=== PATIENT | male | born 1930 | race Caucasian/White ===

== ENCOUNTER 2019-02-01 11:21 | Inpatient (IN) | payer OTHER ==
[2019-02-01] MEDS ORDERED: NS 500 ML IV ONE (12:04)
--- NOTE | 2019-02-01 12:59 | EDPHY ---
H & P Time Seen by Provider: 02/01/19 11:48 HPI/ROS: CHIEF COMPLAINT: Fell last night, back pain HISTORY OF PRESENT ILLNESS: Per and patient, patient fell last night, he states he "lost his balance". She found him on the floor this morning and he said he had been there all night. This was about 730 this morning. She needed to call a neighbor to help him get up but he was able to walk downstairs and ate breakfast. He did have to have his clothes changes he had urine on him after lying on the floor all night. called primary care and was told to come into the emergency department. Patient currently states that he has no pain in any particular area. He has been coughing for "few weeks". When asked in more detail he does also describe a little shortness of breath associated with the coughing. He denies headache, neck pain, chest pain, nausea, vomiting. He denies any extremity pain or hip pain. Per he has been getting weaker lately. He does use a walker. He does not use home O2. He has cck-pczldzl-qbqxxsazh diabetes. REVIEW OF SYSTEMS: Constitutional: No fever, no chills. Eyes: No discharge. ENT: No sore throat. Cardiovascular: No chest pain, no palpitations. Respiratory: Cough and shortness of breath present time several weeks Gastrointestinal: No abdominal pain, no vomiting. Genitourinary: No dysuria. Musculoskeletal: Chronic back pain. Denies neck pain. Skin: No rashes. Neurological: No headache. General Appearance: Alert, no distress. Hypoxic. Eyes: Pupils equal and round no pallor or injection. ENT, Mouth: Mucous membranes moist. Respiratory: There are no retractions, crackles in bases bilaterally. Diminished. Cardiovascular: Regular rate and rhythm. Gastrointestinal: Abdomen is soft and nontender, no masses, bowel sounds normal. Normal femoral pulses. Neurological: Awake, cooperative, no obvious focal deficits. Cranial nerves intact. Skin: Warm and dry, no rashes. Musculoskeletal: Neck is supple nontender. Extremities are symmetrical, full range of motion, no edema. Some diffuse back tenderness no step-off or crepitus. Psychiatric: Patient is oriented X 3, there is no agitation. Medical/surgical history: Noninsulin dependent diabetes, high cholesterol, hypothyroid, chronic back pain. Social history: Lives with , previous smoker 30 years ago. No ETOH or drugs. Uses walker. Smoking Status: Former smoker Constitutional: Initial Vital Signs Temperature (C) 36.1 C 02/01/19 11:29 Heart Rate 68 02/01/19 11:29 Respiratory Rate 20 02/01/19 11:29 Blood Pressure 130/66 H 02/01/19 11:29 O2 Sat (%) 85 L 02/01/19 11:29 O2 Delivery Mode Room Air Allergies/Adverse Reactions: No Known Allergies Allergy (Verified 02/01/19 11:29) Home Medications: Medication Instructions Recorded Levothyroxine 07/30/13 Metformin HCl 07/30/13 Donepezil HCl 02/01/19 Medical Decision Making - Diagnostics EKG Interpretation: EKG shows sinus rhythm with a prolonged NC interval. Normal axis. Q-waves present in anterior leads consider possible old infarct. Subtle ST T-wave changes not meeting criteria for ST-elevation CT. Impression abnormal, nonspecific EKG. Repeat EKG shows no changes. Imaging Results: Imaging Impressions Chest X-Ray 02/01/19 12:05 Impression: New diffuse interstitial lung disease of unknown chronicity. Consider noncontrast high-resolution chest CT for further characterization. 2. Interval moderate T8 compression, superimposed on other compressions, suggests underlying low bone strength. This patient might benefit from a DEXA scan. Chest/Thorax CTA 02/01/19 13:18 Impression: 1. No pulmonary embolism. 2. Emphysema. Findings and recommendations discussed with Josephine Mckay MD at 2:00 PM hour , 02/01/2019. Final report concurs with initial preliminary interpretation. Thoracic Spine CT 02/01/19 13:19 Impression: Compression deformities to T9 and T10, worse compared to prior radiograph in 2016. Probably stable T5 compression fracture. MRI for further assessment of exact levels of acute bone marrow edema is recommended if intervention is contemplated. Given the above findings, patient would be an excellent candidate for kyphoplasty for relief of pain. Considering patient's pulmonary risk factors, this can be performed with conscious sedation. Findings and recommendations discussed with Josephine Mckay MD, at 2:00 PM, . Final report concurs with initial preliminary interpretation. ED Course/Re-evaluation: Re-evaluation shows patient without any complaints of pain. States the cough has been ongoing for several weeks and does state there has been associated shortness of breath with that. No recent changes however. 1:[address] Jamie claudio, hospitalist, accepted for transfer. Differential Diagnosis: Differential diagnosis includes but is not limited to non ST elevation CT, acute coronary syndrome, pulmonary embolism, acute thoracic fracture, failure to thrive. Patient with multiple abnormalities found on workup today most notable very elevated D-dimer and troponin. Discussed with hospitalist and will plan for admission at [facility] PCU. Patient otherwise comfortable, hemodynamically stable, suitable for ambulance transport. Maintain O2 sats on nasal cannula. Critical Care Time: I spent a total of 35 minutes of critical care time in obtaining history, performing a physical exam, bedside monitoring of interventions, collecting and interpreting tests and discussion with consultants but not including time spent performing procedures. - Data Points Laboratory Results: 02/01/19 02/01/19 02/01/19 12:49 12:48 12:40 POC Sodium 138 mEq/L mEq/L (135-145) POC Potassium 4.6 mEq/L mEq/L (3.3-5.0) POC Chloride 100.0 mEq/L mEq/L (97-110) POC Total CO2 28 mEq/L mEq/L (22-31) POC BUN 27 mg/dL H mg/dL (7-23) POC Creatinine 1.0 mg/dL mg/dL (0.7-1.3) POC Glucose 127 mg/dL H mg/dL (70-100) POC Calcium 10.4 mg/dL mg/dL (8.5-10.4) POC Total Bilirubin 0.7 mg/dL mg/dL (0.1-1.4) POC AST 46 IU/L IU/L (17-59) POC ALT 22 IU/L IU/L (21-72) POC Alk Phosphatase 69 IU/L IU/L (38-126) Creatine Kinase 509 IU/L H IU/L (0-224) CK-MB (CK-2) Fraction 15.60 ng/mL H ng/mL (0.00-4.55) CK-MB (CK-2) % 3.1 % % (0.0-4.0) Creatine Kinase Interp NEGATIVE (NEGATIVE) POC Troponin I 1.74 ng/mL H ng/mL (0.00-0.08) NT-Pro-B Natriuret Pep POC Total Protein 6.5 g/dL g/dL (6.3-8.2) POC Albumin 3.0 g/dL L g/dL (3.5-5.0) 02/01/19 12:40 POC Sodium POC Potassium POC Chloride POC Total CO2 POC BUN POC Creatinine POC Glucose POC Calcium POC Total Bilirubin POC AST POC ALT POC Alk Phosphatase Creatine Kinase CK-MB (CK-2) Fraction CK-MB (CK-2) % Creatine Kinase Interp POC Troponin I NT-Pro-B Natriuret Pep 6300 pg/mL H pg/mL (0-450) POC Total Protein POC Albumin Medications Given: Discontinued Medications Sodium Chloride (Ns) 500 mls @ 1,000 mls/hr IV EDNOW ONE PRN Reason: Protocol Stop: 02/01/19 12:33 Last Admin: 02/01/19 12:45 Dose: 500 mls Point of Care Test Results: CBC CBC Collection Date 02/01/19 CBC Collection Time 12:40 WBC 9.26 RBC 4.74 HGB 14.8 HCT 44.8 PLT 371 Neut # 7.12 Neut 76.9 LYMPH # 0.72 LYMPH 7.8 MCV 94.5 Chemistry 02/01/19 02/01/19 12:49 12:48 POC Sodium 138 mEq/L mEq/L (135-145) POC Potassium 4.6 mEq/L mEq/L (3.3-5.0) POC Chloride 100.0 mEq/L mEq/L (97-110) POC Total CO2 28 mEq/L mEq/L (22-31) POC BUN 27 mg/dL H mg/dL (7-23) POC Creatinine 1.0 mg/dL mg/dL (0.7-1.3) POC Glucose 127 mg/dL H mg/dL (70-100) POC Calcium 10.4 mg/dL mg/dL (8.5-10.4) POC Total Bilirubin 0.7 mg/dL mg/dL (0.1-1.4) POC AST 46 IU/L IU/L (17-59) POC ALT 22 IU/L IU/L (21-72) POC Alk Phosphatase 69 IU/L IU/L (38-126) POC Troponin I 1.74 ng/mL H ng/mL (0.00-0.08) POC Total Protein 6.5 g/dL g/dL (6.3-8.2) POC Albumin 3.0 g/dL L g/dL (3.5-5.0) D-Dimer D-Dimer Collection Date 02/01/19 D-Dimer Collection Time 12:40 D-Dimer (ng/ml) 979 Urine Dip Collection Date 02/01/19 Collection Time 13:00 Specific Cody (1.002-1.030) 1.025 PH (5.0-7.5) 5.0 Leukocytes (Negative) Negative Nitrites (Negative) Negative Protein (Negative) 1+ Glucose (Negative) Negative Ketones (Negative) Negative Urobilnogen (0.2-1.0 EU) 0.2 Bilirubin (Negative) Negative Blood (Negative) 2+ Departure - Departure
[2019-02-01] MEDS ORDERED: IOPAMIDOL (ISOVUE 370) 100 ML BTL IV ONE (13:26)
[2019-02-01] MEDS ORDERED: ONDANSETRON DISINTEGRATING 4 MG TAB PO PRN (14:20)
[2019-02-01] MEDS ORDERED: ACETAMINOPHEN 325 MG TAB PO PRN (14:20)
[2019-02-01] MEDS ORDERED: ONDANSETRON 4 MG/2 ML VIAL IVP PRN (14:20)
[2019-02-01] MEDS ORDERED: D50W 25 GM/50 ML SYR IVP PRN (14:22)
[2019-02-01 14:38] LABS: CREATINE KINASE 509 IU/L (0-224)
[2019-02-01] MEDS ORDERED: ASPIRIN 81 MG CHEWABLE TAB ONE (15:32)
[2019-02-01] MEDS ORDERED: ASPIRIN 81 MG CHEWABLE TAB PO ONE (15:38)
[2019-02-01] MEDS ORDERED: HEPARIN 10,000 UNIT/10 ML MDV (1,000 UNIT/ML) IVP ONE (17:22)
[2019-02-01] MEDS ORDERED: HEPARIN/DEXTROSE 500 ML IV SCH (17:30)
--- NOTE | 2019-02-01 18:12 | GHP ---
[f rep st] HISTORY AND PHYSICAL DATE OF ADMISSION: 02/01/2019 CHIEF COMPLAINT: NSTEMI, shortness of breath. HISTORY OF PRESENT ILLNESS: An 88-year-old male with history of moderate aortic stenosis, hyperlipidemia, and dementia, who went to [facility] after a fall last night. Per patient, he "lost his balance." found him on the floor, and said he had been there all night. Neighbor had to help to get him up. He denies chest pain. He has had a nonproductive cough for the past 3 weeks. He does endorse some shortness of breath, most with sitting. Denies PND or pillow orthopnea. No leg or abdominal swelling. No fevers, chills, or sweats. No palpitations or loss of consciousness. He does use a walker. Labs revealed troponin 1.74. CTA was negative for PE, demonstrated emphysema. He was transferred to [facility] for further care. Upon my interview, the patient states he would not want aggressive medical management including interventions like a cath. He is okay with medical management with heparin. REVIEW OF SYSTEMS: I completed a 10-point review of systems, negative except as noted in HPI. PAST MEDICAL HISTORY: Aortic stenosis, diabetes, hyperlipidemia, hypothyroidism , dementia, diabetic neuropathy, and chronic back pain. PAST SURGICAL HISTORY: Appendectomy. SOCIAL HISTORY: Lives in [place] with his , 67 years. Smoked 2 packs a day for 20 years. No longer a smoker. No alcohol or illicits. FAMILY HISTORY: Noncontributory. HOME MEDICATIONS: Aricept, metformin, levothyroxine. ALLERGIES: None. PHYSICAL EXAMINATION: VITAL SIGNS: Temperature 36.4, blood pressure 116/65, heart rate in the 50s, respirations 14, 88% on 4 L. GENERAL: He is lying in bed in no acute distress. HEENT: PERRLA. Moist mucous membranes. CV: Regular rate and rhythm. +3/6 murmur, right upper sternal border, radiation to carotid. No lower extremity edema. LUNGS: Clear. No crackles or wheezing. ABDOMEN: Soft, nontender. : No Harris. Musculoskeletal: He is moving all four extremities. NEURO: 2 through 12 intact. PSYCH: He is answering questions appropriately. MUSCULOSKELETAL: No tenderness over spine. LABORATORY FINDINGS: 1. WBC 6, hemoglobin 16, hematocrit 48, platelets 229. INR 1.1, PTT is 14. Lactate is 2.4. Sodium 138, potassium 4.8, chloride 100, carbon dioxide 28, creatinine is 1. Glucose is 117, calcium 10.4. Bilirubin 0.7. Troponin is 1.74. Albumin is 3. 2. CTA: No pulmonary embolism. Emphysema. 3. Chest x-ray: Personally reviewed by me, interstitial disease. Moderate T8 compression. 4. CT thoracic spine: Compression deformities, T9-T10, worse compared to prior imaging. Probably stable T5 compression fracture. 5. EKG: Personally reviewed by me. Mild inferior ST-elevation similar to prior. Old anterior infarct. ASSESSMENT AND PLAN: 1. Cmz-GB-puzztnauz myocardial infarction : Denies chest pain. CT negative for PE. Concern for progressive aortic stenosis. Echocardiogram in the morning. Dr. Meyer was consulted. They will see tomorrow. The patient does not want aggressive evaluation, including catheterization. He is agreeable to medical management. Start heparin drip tonight. Aspirin. No beta hernandez with bradycardia. 2. Dementia, on Aricept. 3. Hypothyroidism, on levothyroxine. 4. Respiratory insufficiency: 85% RA Does endorse some shortness of breath, likely due to valvular heart disease. Respiratory panel is pending. 5. T5 compression fx: he c/o of lumbar pain, no TTP on imaging. 5. Diet: Regular. 7. Deep vein thrombosis prophylaxis. He is on heparin drip. 8. Goals: DNR, medical management DISPOSITION: Inpatient admission for IV heparin. Cardiac evaluation. /[id number]/MODL MTDD
--- NOTE | 2019-02-01 18:12 | CPEKG ---
Test Reason : OPEN Blood Pressure : / mmHG Vent. Rate : 059 BPM Atrial Rate : 059 BPM P-R Int : 282 ms QRS Dur : 094 ms QT Int : 431 ms P-R-T Axes : 002 022 081 degrees QTc Int : 427 ms Sinus rhythm Prolonged OK interval Anterior infarct, old Confirmed by Josephine Mckay (30) on 02/01/2019 6:12:09 PM Referred By: Josephine Mckay Confirmed By:Josephine Mckay
--- NOTE | 2019-02-01 18:12 | CPEKG ---
Test Reason : OPEN Blood Pressure : / mmHG Vent. Rate : 055 BPM Atrial Rate : 055 BPM P-R Int : 289 ms QRS Dur : 096 ms QT Int : 448 ms P-R-T Axes : -01 029 085 degrees QTc Int : 429 ms Sinus rhythm Prolonged FL interval Anterior infarct, old Confirmed by Josephine Mckay (30) on 02/01/2019 6:11:53 PM Referred By: Josephine Mckay Confirmed By:Josephine Mckay
[2019-02-01] MEDS: INSULIN LISPRO 100 UNIT/ML SC SCH (18:21)
[2019-02-01 18:44] LABS: PLATELET COUNT 369 10^3/uL (150-400)
[2019-02-01 18:54] LABS: INR 1.08 (0.83-1.16); PROTIME(PATIENT) 13.6 SEC (12.0-15.0)
[2019-02-02] MEDS: HEPARIN 10,000 UNIT/10 ML MDV (1,000 UNIT/ML) IVP PRN ×3 (06:40→16:50)
[2019-02-02] MEDS ORDERED: ASPIRIN 81 MG CHEWABLE TAB PO ONE (09:00)
[2019-02-02] MEDS ORDERED: ENOXAPARIN 40 MG/0.4 ML SYR SC SCH (09:00)
--- NOTE | 2019-02-02 09:25 | PDMN ---
Medical Necessity Medical necessity: MCG M230 [place], 2 days: 88 yo w/ acute NSTEMI w/ elevated troponin, concern for progressive aoritic stenosis. Pt requiring O2 to keep sats >90%. Cardio consult, heparin gtt started. Admit IP status for cardio eval, monitoring and tx.
[2019-02-02] MEDS: ATORVASTATIN CALCIUM 20 MG TAB PO SCH (10:14)
[2019-02-02] MEDS: INSULIN LISPRO 100 UNIT/ML SC SCH ×3 (10:15→18:32)
--- NOTE | 2019-02-02 11:38 | GCON ---
[f rep st] CONSULTATION CARDIOLOGY CONSULTATION DATE OF CONSULTATION: 02/02/2019 REFERRING PHYSICIAN: Carolann Olivarez MD CHIEF COMPLAINT: Non-ST elevation myocardial infarction and valvular heart disease. HISTORY OF PRESENT ILLNESS: We were asked by Dr. Olivarez to visit with the patient. The patient is a n 88-year-old male with a history of moderate aortic stenosis based on 2014 echo, diabetes complicate d by neuropathy, dementia, dyslipidemia. Yesterday, he was brought to [facility] by his after [facility] He had [facility] during the night. Per patient report, he tripped and fell and did not have loss o f consciousness or dizziness. He was unable to get up, but with her help and the help of neighbor sonali spencer get up and was brought to Urgent Care. In the department, his troponin was found to be 1.7. He was complaining of mild dyspnea, but no ches t pain. He was found to be significantly hypoxic. He was, therefore, admitted to [facility] for further evaluation and management. Upon my interview this morning, he reports no chest pain, no dyspnea, no palpitations. No history of recent syncope. No lower extremity edema. His only complaint is lower back pain, which is chronic, and per his report, not worsening. I have reviewed prior records. He was last seen by Dr. Gonzalez at [facility] in December 2013. This was to discuss an echo that had been done just prior to that visit showing a low normal ejection frac tion with apical hypokinesis and moderate aortic stenosis. The patient elected for continued medical management at that time. ALLERGIES: No known drug allergies. CODE STATUS: Do not resuscitate. PAST MEDICAL HISTORY: 1. Aortic stenosis, moderate based on 2014 echo. 2. Diabetes complicated by neuropathy. 3. Chronic low back pain. 4. Hypothyroidism. 5. Dementia. 6. Dyslipidemia. 7. Emphysema seen on recent chest CT. OUTPATIENT MEDICATIONS: Vitamin D3, Aricept, Synthroid, metformin, multivitamin, fish oil. SOCIAL HISTORY: The patient is and lives with his . He has a former tobacco history, bu t quit several years ago. He denies alcohol use. He used to be a contractor for sewage piping. FAMILY HISTORY: History is not applicable to the current case. PHYSICAL EXAM: VITAL SIGNS: Blood pressure 111/54, heart rate 54, oxygen saturation is 88% on 5 L n barbie cannula. He is afebrile. GENERAL: Somewhat frail, elderly gentleman in no acute distress. HE ENT: Dentition poor. Mucous membranes are moist. Sclerae are nonicteric. Normocephalic atraumatic . CARDIOVASCULAR: JVP less than 10. Carotids equal and 2+ bilaterally without bruit. Regular rate and rhythm with a 2/6 mid peaking systolic ejection murmur at the base. No rub or gallop. LUNGS: Fine bibasilar rales without wheezes or rhonchi. ABDOMEN: Slightly distended and nontender. No obv ious masses. EXTREMITIES: No lower extremity edema. Extremities are warm. NEUROLOGIC: He is aler t and oriented x3. No gross focal neurologic deficits. Appropriate mood and affect. He does seem t o be able to answer correctly all my questions. LABORATORY/IMAGING: CBC is essentially normal, except for a slightly elevated eosinophil count with an overall normal white count. INR 1. Sodium 138, potassium 4.6, chloride 100, BUN 27, creatinine 1 .0, glucose 127. CK 509 with a negative MB fraction. Qryix-ih-xire troponin yesterday 1.74. Repeat at 2120, 1.51, and this morning at 0130, 1.27. Echocardiogram is pending. EKG reviewed by me x2 and compared with 2016, shows sinus rhythm with delayed R-wave progression, inf erior Q-waves, minimal inferior ST elevation that was not present on 2016 EKG. Chest x-ray reviewed by me shows shows an interstitial abnormality. Chest CT: No pulmonary embolism. Emphysema. Thoracic spine CT: Compression deformities T9 and T10. T5 compression fracture probably stable. Th e T9 and T10 are worse compared to 2016. ASSESSMENT AND PLAN: 88-year-old male with known aortic stenosis last evaluated in 2014, diabetes, d yslipidemia, dementia that seems mild upon my observation. He is admitted status post fall at home, found to have slightly elevated troponin, and significant hypoxia with evidence of underlying emphyse matous lung disease and also EKG changes. 1. Non-ST elevation myocardial infarction: He does have minimal ST elevation, but also inferior Q-w aves. His troponin is decreasing. He denies angina. No indication for urgent catheterization at is time. Initially, he told Dr. Olivarez last night that he would not want a catheterization, but he t ells me that he would want procedures on his heart if we thought that was necessary. He is currently on a heparin drip and aspirin. I will add low-dose statin. Check lipid profile. No beta hernandez g iven his relative bradycardia and normotension to slightly low blood pressures. Will await echocardi ogram prior to deciding about coronary angiography. 2. Aortic stenosis: Likely this has progressed over the past 5 years. His BNP is elevated, but his chest imaging does not suggest significant pulmonary edema, but rather underlying emphysematous dise ase. We will hold off on Lasix for now. Re-evaluate with echo. If his aortic stenosis is severe, judy quiñones may be a candidate for transcatheter aortic valve replacement. 3. Fall at home: By history, this seems mechanical. He does have compression fractures of unclear age of unclear chronicity. Does have back pain. We will defer to Internal Medicine and Radiology ab out whether he needs kyphoplasty. 4. Diabetes: Per Hospital Medicine. 5. Hypothyroidism. Last TSH was normal in December of this year. Continue Synthroid. 6. Dementia: He is on Aricept. He appears appropriate and oriented on my evaluation. 7. Thank you for allowing us to participate in the patient's care. We will follow with you and make a f urther plan based on echocardiogram. /[id number]/MODL
--- NOTE | 2019-02-02 13:52 | ECHO ---
[email or web address] [address] [address] Main: [phone] Echocardiography Examination Transthoracic Name: DEVONTE BENITES MR#: [id number] Study Date: 02/02/2019 Study Time: 10:43 AM Date of : 1930 Age: 88 year(s) Height: 172.7 cm (68 in.) Weight: 67.59 kg (149 lb.) BSA: 1.8 m2 Gender: Male Examination: Echo Contrast: Image Quality: Rhythm: Heart Rate: BP: / Indication: NSTEMI Procedure Staff Referring Physician: Storage Brine Worker: Hermes Castillo RDCS Reading Physician: Charlene Meyer MD Requesting Provider: Ordering Physician: Carolann Olivarez Indication: NSTEMI Measurements Chambers AV/MV Label Value Normal Value Label Value Normal Value LVOT Vmax 1.1 m/s (0.7m/s - 1.1m/s) AR PHT 0.77 s LVOTd 2.1 cm (1.9cm - 2.1cm) AR PHT 770 ms LVOT VTI 26.2 cm (18cm - 22cm) AR Vmax 3.09 m/s LVDd, 2D 4.3 cm (4.2cm - 5.9cm) AV PGmax 44 mmHg LVDs, 2D 3 cm (2.1cm - 4cm) AV PGmean 27 mmHg IVSd, 2D 0.9 cm (0.6cm - 1.1cm) AV Vmax 3.31 m/s LVPWd, 2D 1 cm (0.6cm - 1cm) IZABEL (Vmax) 1.2 cm2 LVEF, 2D 57 % (54% - 74%) IZABEL (VTI) 1.3 cm2 LVOT PGmean 3 mmHg MV E Vmax 0.48 m/s LVOT Vmean 0.83 m/s MV A Vmax 0.88 m/s LADs, 2D 3.4 cm (3cm - 4cm) MV E/A 0.55 Additional Vessels MV E/E' lateral 21.4 Label Value Normal Value MV E/E' septal 12.9 (0.45 - 1.25) AoAsc 2.3 cm MV E' septal 0.04 m/s AoRoot, MM 3.3 cm (2.2cm - 3.7cm) MV E' lateral 0.02 m/s MV E/E' mean 16 MV E' mean 0.03 m/s TV/PV Label Value Normal Value Patient: DEVONTE BENITES Study Date: 02/02/2019 Page 1 of 2 10:43 AM PV PGmax 4 mmHg PV Vmax, Caliper 1.05 m/s (0.6m/s - 0.9m/s) Findings 1. Left ventricular systolic function is low normal with an ejection fraction of 50-55%. There is apical hypokinesis that is also somewhat aneurysmal in appearance.2. The right ventricle is normal in size and systolic function.3. moderate aortic stenosis and mild aortic regurgitation.4. Trivial tricuspid regurgitation. Unable to assess PA systolic pressure5. Compared with previous echo dated 12/01/2013 wall motion abnormality and EF for similar. Transaortic valve gradients have increased but aortic stenosis is still in the moderate range.. Left Ventricle: There is Apical hypokinesis. The apex does appear somewhat aneurysmal. There is accelerated flow in the mid left venticle with a gradient of 7 mmHg. There is a dagger shaped mid LV waveform. Elevated left ventricular filling pressure. Left ventricle is normal in size. The EF is visually estimated to be 50 %. Left ventricle wall thickness is normal. Grade II Diastolic Dysfunction. Right Ventricle: Normal size right ventricle. Right ventricular systolic function is normal. Left Atrium: The left atrium is normal in size. Right Atrium: The right atrium is normal in size. Mitral Valve: Mitral valve appears structurally normal. No significant mitral regurgitation. There is mild mitral calcification. Aortic Valve: The AV Vmax is 3.3 cm/s with a Mean PG of 27mmHg and a Max PG of 44mmHg.. Mild aortic regurgitation is present. There is moderate aortic stenosis. Aortic leaflets exhibit moderate calcification. Tricuspid Valve: Tricuspid valve leaflets are structurally normal. Trivial tricuspid regurgitation. Pulmonic Valve: Pulmonic leaflets are structurally normal. No pulmonic valve regurgitation is evident. Aorta: The aorta is normal. The aortic root size in M-mode measures 3.3 cm. The ascending aorta measures 2.3 cm. Aorta Measurements AoRoot, MM is 3.3 cm. Pericardium: No pericardial effusion. Exam Details Procedure Ordered: Echo (No Signature Object) Patient: DEVONTE BENITES Study Date: 02/02/2019 Page 2 of 2 10:43 AM [id number]
--- NOTE | 2019-02-02 15:16 | HOSPPROG ---
Hospitalist Progress Note Assessment/Plan: 88 yo M w NSTEMI NSTEMI: trop peaked at 1.[address] elevations w no reciprocal changes echo w apical HK which is old continue heparin overnight lexiscan in AM1 asa/statin repeat trop in AM hold BB given hr 50's : gradient increased but remains moderate pulm: copd on CT fine crackles at bases add IS not wheezing compression fx: not new, but perhaps worse will revisit after lexiscan fall: mechanicall dispo: inpt code: dnr Subjective: no CP. case d/w dr tom Objective: Vital Signs Temp Pulse Resp BP Pulse Ox 36.7 C 60 22 H 98/49 L 1 L 02/02/19 12:00 02/02/19 12:00 02/02/19 12:00 02/02/19 12:00 02/02/19 12:00 Microbiology 02/01/19 16:30 Respiratory Panel (PCR) - Final Nasal, Sinus - Swab No Organism Detected By Pcr Laboratory Results 02/01/19 18:15 02/01/19 02/02/19 02/03/19 05:59 05:59 05:59 Intake Total 900 240 Balance 900 240 PT 13.6 SEC (12.0-15.0) 02/01/19 18:15 INR 1.08 (0.83-1.16) 02/01/19 18:15 - Physical Exam Constitutional: no apparent distress, appears nourished Eyes: PERRL, anicteric sclera Ears, Nose, Mouth, Throat: moist mucous membranes, hearing normal Cardiovascular: regular rate and rhythym, systolic murmur, No edema Respiratory: no respiratory distress, other (bibasilar crackles) Gastrointestinal: normoactive bowel sounds, soft, non-tender abdomen Genitourinary: No ge in urethra Skin: warm, normal color Musculoskeletal: full muscle strength Neurologic: AAOx3 Psychiatric: interacting appropriately
--- NOTE | 2019-02-02 15:38 | ASMTCMCOM ---
CM Note CM Note Notes: Pts case discussed w/ JORJE Burton. Pt is a 88 y/o man admitted for NSTEMI and shortness of breath. CM met w/ pt and introduced self. Pt reports that he was driving prior to coming into the hospital. CM spoke to pts and she reports that he needed help around the house. She reports that pt was getting [facility] but is unhappy with them. Therapies have been ordered and awaiting recommendations. Pts will be here tomorrow at 10:30AM for rounds. CM to follow. Plan: TBD Date Signed: 02/02/2019 03:37 PM Electronically Signed By:ARNULFO Rodriguez
[2019-02-03] MEDS: LEVOTHYROXINE 88 MCG TAB PO SCH (06:20)
[2019-02-03] MEDS: INSULIN LISPRO 100 UNIT/ML SC SCH ×3 (08:13→18:34)
[2019-02-03] MEDS ORDERED: Herbals/Supplements -Info Only PO SCH (09:00)
[2019-02-03] MEDS: ASPIRIN 81 MG CHEWABLE TAB PO SCH (10:28)
[2019-02-03] MEDS: MULTIVITAMINS 1 EACH TAB PO SCH (10:28)
[2019-02-03] MEDS: OMEGA-3 FATTY ACIDS 1,000 MG CAP PO SCH (10:28)
[2019-02-03] MEDS: CHOLECALCIFEROL VIT D3 1,000 UNITS TAB PO SCH (10:28)
[2019-02-03] MEDS: ATORVASTATIN CALCIUM 20 MG TAB PO SCH (10:28)
[2019-02-03] MEDS: DONEPEZIL HCL 5 MG TAB PO SCH (10:30)
--- NOTE | 2019-02-03 12:43 | PDCARPN ---
Cardiology Progress Note Assessment/Plan: Assessment/plan: 88-year-old male with moderate aortic stenosis, COPD, dementia , diabetes. He was admitted on February 01 status post fall at home. Troponin minimally elevated at 1.7. This has improved. He has not had angina. He completed 48 hr of heparin. 1. Non ST-elevation MS: Based on his apical wall motion abnormality on echo which was present in 2013, he likely has coronary disease with a past history of MS and now an additional non ST-elevation MS. I discussed options with the patient including medical management, nuclear stress test or catheterization. Initially the patient had said he would want aggressive testing, however today he declined Lexiscan nuclear stress test. Given lack of angina or heart failure I think this is acceptable, and assess wishes. Continue aspirin statin. No indication for beta-hernandez given his relative bradycardia. 2. Moderate aortic stenosis: Slightly worse compared to 2014 but still in the moderate range. Needs outpatient serial follow-up. 3. COPD and hypoxia: He has emphysematous changes on chest CT. Previously was not on oxygen. No other etiology for hypoxia. 4. Fall at home: No acute injury. 5. Diabetes: Per Internal Medicine 6. Dementia: He is on Aricept. Okay to discharge from a cardiac standpoint. We will sign off. He can follow up with me in clinic. 02/03/19 12:41 Subjective: Denies chest pain or dyspnea. Reviewed/Discussed With: hospitalist (Dr. Ponce) Objective: Vital Signs (8 Hrs) Temp Pulse Resp BP Pulse Ox 02/03/19 11:53 36.8 C 54 L 18 115/55 L 94 02/03/19 08:00 36.7 C 56 L 18 105/50 L 92 Intake/Output (24 Hrs) 02/02/19 02/03/19 02/04/19 05:59 05:59 05:59 Intake Total 900 1137 Balance 900 1137 Intake: Oral (ml) 400 540 IV Infused (ml) 500 597 Heparin/Dextrose 500 ml @ 597 Per Protocol IV CONT MAYI Rx#:[id number] Other: Weight 67.585 kg Output Comment Toilet BM per patient Number of Voids 2 Incontinence 1 Toilet 2 4 1 Number of Stools Toilet 1 No acute distress. Sitting up in bed eating. JVP less than 10. Regular rate and rhythm with 2/6 mid-peaking systolic ejection murmur at the base. Decreased breath sounds throughout all lung good no wheezes rhonchi rales No lower extremity edema Result Diagrams: 02/03/19 06:20 Cardiac Labs: Cardiac Lab Results (72 Hrs) 02/02/19 02/01/19 01:30 21:20 Troponin I 1.270 H 1.510 H ICD10 Worksheet Patient Problems: Problems Problem Status Onset NSTEMI (non-ST elevated myocardial infarction) Acute - ICD10 Problem Qualifiers (1) NSTEMI (non-ST elevated myocardial infarction)
[2019-02-03] MEDS ORDERED: FUROSEMIDE 40 MG/4 ML VIAL IVP ONE (13:29)
--- NOTE | 2019-02-03 13:38 | HOSPPROG ---
Hospitalist Progress Note Assessment/Plan: 88 yo M w NSTEMI NSTEMI: trop peaked at 1.[address] elevations w no reciprocal changes echo w apical HK which is old dc heparin today declines lexiscan, which is OK asa/statin hold BB given hr 50's : gradient increased but remains moderate outpt follow up AHRF: suspect multifactorial copd, plus possible pulm edema 1. start scheduled duonebs 2. IS 3. lasix x 1 4. wean 02 as tolerated 5. was 85% on RA on presentation suspect will need home 02 pulm: copd on CT fine crackles at bases add IS not wheezing compression fx: not new, but perhaps worse fall: mechanical dispo: inpt code: dnr Subjective: case d/w dr tom. declines lexiscan. persistent 02 requirement Objective: Vital Signs Temp Pulse Resp BP Pulse Ox 36.8 C 54 L 18 115/55 L 94 02/03/19 11:53 02/03/19 11:53 02/03/19 11:53 02/03/19 11:53 02/03/19 11:53 Laboratory Results 02/03/19 06:20 02/02/19 02/03/19 02/04/19 05:59 05:59 05:59 Intake Total 900 1137 Balance 900 1137 PT 13.6 SEC (12.0-15.0) 02/01/19 18:15 INR 1.08 (0.83-1.16) 02/01/19 18:15 - Physical Exam Constitutional: no apparent distress, appears nourished Eyes: PERRL, anicteric sclera Ears, Nose, Mouth, Throat: moist mucous membranes, hearing normal Cardiovascular: regular rate and rhythym, no murmur, rub, or gallop Respiratory: other (bibasilar crackles w prolonged expiratory phase) Gastrointestinal: normoactive bowel sounds, soft, non-tender abdomen Genitourinary: no bladder fullness, No ge in urethra Skin: warm, normal color Musculoskeletal: full muscle strength, no muscle tenderness Neurologic: AAOx3, sensation intact bilaterally Psychiatric: interacting appropriately ICD10 Worksheet Patient Problems: Problems Problem Status Onset NSTEMI (non-ST elevated myocardial infarction) Acute
[2019-02-03] MEDS: IPRATROPIUM/ALBUTEROL 3 ML DEYVIAL IH SCH ×3 (13:56→21:37)
--- NOTE | 2019-02-03 15:18 | ASMTCMCOM ---
CM Note CM Note Notes: 02/03/2019 Case Management Note Discussed pt during rounds today; pt requiring 6 L of O2 today. Met w/pt to discuss d/c needs. Pt declined PT today, encouraged pt to participate tomorrow as evals will help determine d/c plan. OT recommending SNF today. Pt lives with his Rozina [phone] in their own home. Pt has hired [facility]. Pt denies previous SNF rehab stay. Pt has stayed at [facility] after surgery. Pt reports that he does not have any friends or family in the area. Case Management d/c poc: remains TBD, pending PT eval recommendations. Case Management to follow. Date Signed: 02/03/2019 03:17 PM Electronically Signed By:Liat Bauer RN
[2019-02-03] MEDS: ENOXAPARIN 40 MG/0.4 ML SYR SC SCH (20:42)
[2019-02-04] MEDS: LEVOTHYROXINE 88 MCG TAB PO SCH (04:00)
[2019-02-04] MEDS: IPRATROPIUM/ALBUTEROL 3 ML DEYVIAL IH SCH ×4 (05:46→22:18)
[2019-02-04] MEDS: OMEGA-3 FATTY ACIDS 1,000 MG CAP PO SCH (07:51)
[2019-02-04] MEDS: INSULIN LISPRO 100 UNIT/ML SC SCH ×3 (07:51→17:15)
[2019-02-04] MEDS: MULTIVITAMINS 1 EACH TAB PO SCH (07:51)
[2019-02-04] MEDS: CHOLECALCIFEROL VIT D3 1,000 UNITS TAB PO SCH (07:52)
[2019-02-04] MEDS: DONEPEZIL HCL 5 MG TAB PO SCH (07:52)
[2019-02-04] MEDS: ATORVASTATIN CALCIUM 20 MG TAB PO SCH (07:52)
[2019-02-04] MEDS: ASPIRIN 81 MG CHEWABLE TAB PO SCH (07:52)
--- NOTE | 2019-02-04 12:03 | HOSPPROG ---
Hospitalist Progress Note Assessment/Plan: 88 yo M w NSTEMI NSTEMI: trop peaked at 1.[address] elevations w no reciprocal changes echo w apical HK which is old dc heparin today declines lexiscan, which is OK asa/statin hold BB given hr 50's : gradient increased but remains moderate outpt follow up AHRF: suspect multifactorial copd, plus possible pulm edema 1. start scheduled duonebs 2. IS 3. lasix x 1 4. wean 02 as tolerated 5. was 85% on RA on presentation suspect will need home 02 02/03- still hypoxic no change w diuresis no sputum/fever repeat cxr today suspect he will need home 02 pulm: copd on CT fine crackles at bases add IS not wheezing compression fx: not new, but perhaps worse fall: mechanical dispo: inpt code: dnr Subjective: remains hypoxic. no sputum, fever. no change w diuresis Objective: Vital Signs Temp Pulse Resp BP Pulse Ox 36.8 C 55 L 16 102/50 L 96 02/04/19 11:08 02/04/19 11:10 02/04/19 11:10 02/04/19 11:08 02/04/19 11:10 Laboratory Results 02/03/19 06:20 02/03/19 02/04/19 02/05/19 05:59 05:59 05:59 Intake Total 1137 950 Output Total 900 Balance 1137 50 PT 13.6 SEC (12.0-15.0) 02/01/19 18:15 INR 1.08 (0.83-1.16) 02/01/19 18:15 - Physical Exam Constitutional: no apparent distress, appears nourished Eyes: PERRL, anicteric sclera Ears, Nose, Mouth, Throat: moist mucous membranes, hearing normal Cardiovascular: regular rate and rhythym, no murmur, rub, or gallop Respiratory: no respiratory distress, other (scattered rhonchi, prolonged exp phase) Gastrointestinal: normoactive bowel sounds, soft, non-tender abdomen Genitourinary: no bladder fullness, No ge in urethra Skin: warm, normal color Musculoskeletal: full muscle strength Neurologic: AAOx3 Psychiatric: interacting appropriately, not anxious Lymph, Heme, Immunologic: no cervical LAD, no supraclavicular LAD ICD10 Worksheet Patient Problems: Problems Problem Status Onset NSTEMI (non-ST elevated myocardial infarction) Acute
[2019-02-04] MEDS ORDERED: predniSONE 20 MG TAB PO ONE (13:40)
[2019-02-04 13:56] LABS: PLATELET COUNT 367 10^3/uL (150-400)
--- NOTE | 2019-02-04 14:54 | ASMTCMCOM ---
CM Note CM Note Notes: 02/04/2019 Case Management Note Discussed with therapy providers today. All recommending SNF rehab. Discussed w/pt. Pt agreeable. Vonnie from [facility] visited onsite. Pt has previous stay at [facility]. Vonnie accepted patient. Faxed referral to [facility] via [employer]. Left for Rozina [phone] requesting call back. Case Management d/c poc: [facility] SNF rehab pending auth. Case Management to follow. Date Signed: 02/04/2019 02:53 PM Electronically Signed By:Liat Bauer RN
--- NOTE | 2019-02-04 16:34 | ASMTCMCOM ---
CM Note CM Note Notes: 02/04/2019 Case Management Note Pt Rozina reached neighbor Nehal Mckenna [phone] for assistance in sending MDPOA. Nehal requested call from case management to confirm receipt. Nehal is back fence neighbor and assists pt and as needed. Put MDPOA in paperwork in paper chart. Date Signed: 02/04/2019 04:33 PM Electronically Signed By:Liat Bauer RN
--- NOTE | 2019-02-04 19:58 | GCON ---
[f rep st] CONSULTATION PULMONARY CONSULTATION DATE OF CONSULTATION: 02/04/2019 REASON FOR CONSULTATION: COPD/emphysema, interstitial changes, hypoxemia. HISTORY: The patient is a very pleasant 88-year-old gentleman who presented to [facility] on 02/01 with a s yncopal episode. He apparently was found down, had been on the floor most of the night. He was take n to the emergency department and evaluated. CTA was done. There was no evidence of pulmonary embol ism. Severe emphysema was noted along with some paraseptal and peripheral fibrotic disease. He was hypoxemic, placed on oxygen. Troponins were positive. He was transferred to [facility]. Cardiac echo was done, which showed a left ventricular ejec tion fraction of approximately 50%. Some apical hypokinesis was noted. Diastolic dysfunction was pr esent. Right ventricular function was normal. Moderate aortic stenosis is present. Pulmonary press ures were not directly commented on. Tricuspid regurgitation was minimal. He was seen by Cardiology. He was felt possibly to have a small myocardial infarction. There was no indication for catheterization at that time, and the patient declined initial cath. He was placed o n heparin and aspirin. Oxygen requirements have remained relatively high at 4 to 6 L. The patient did apparently have incre ased cough for several weeks prior to admission, but no clinical infection. He states he has had figueroa e cough and shortness of breath for many years. He states he had pneumonia in the past and was sent home on oxygen at that time. He later got off this. He smoked cigarettes for many years. He quit s moking approximately 25 years ago. When he was smoking approximately 30 years, he smoked 2 packs of cigarettes per day. He does recall being told he had COPD, but has been on no inhalers. Currently, he denies significant shortness of breath or dyspnea on exertion. He has no chest pain. He denies w heezing. PAST MEDICAL HISTORY: Remarkable for diabetes for which he takes metformin, known aortic stenosis, h yperlipidemia, mild dementia, and hypothyroidism. MEDICATIONS: On admission included levothyroxine, metformin, and donepezil. SOCIAL HISTORY: The patient is , lives with his . FAMILY HISTORY: Noncontributory. REVIEW OF SYSTEMS: Negative except as mentioned above. PHYSICAL EXAMINATION: GENERAL: Reveals a very pleasant gentleman who is sitting up in a chair. He is in no distress. VITAL SIGNS: Blood pressure is approximately 105/50, heart rate 55 and regular. He is on 6 L with saturations in the mid 90s. He is afebrile. Respiratory rate is 16. HEENT: Unr emarkable for lymphadenopathy or thyromegaly. There is no jugular venous distention. PULMONARY: Th e chest reveals diminished breath sounds bilaterally with a prolonged expiratory phase. There are no significant wheezes. There are no rhonchi with voluntary cough. There are a few nonspecific scatte red rales at the bases. HEART: Regular in rate and rhythm. A prominent systolic murmur consistent with aortic stenosis is present. There are no obvious gallops. P2 appears normal. ABDOMEN: Soft, nontender. Bowel sounds are present. EXTREMITIES: Unremarkable for significant edema. NEUROLOGIC: Examination is intact. DATABASE: CT scan of the chest is as outlined above, showing [id number] emphysema and some i nterstitial thickening as noted. White blood cell count is 8800, hematocrit 44, platelets 367,000. ASSESSMENT: 1. Chronic obstructive pulmonary disease/emphysema. This appears to be moderate to severe. Further characterization with spirometry while he is in the hospital is indicated. PFTs will be needed as a n outpatient if the patient wants to do these. He is currently being treated with scheduled DuoNebs. Additional inhaled therapies may be of benefit for him. A dose of prednisone will be given. This may be tolerated poorly secondary to his diabetes and risk of elevating blood sugars. 2. Hypoxemia. The patient was hypoxemic on admission and continues to be so. I would imagine some of this is chronic related to his relatively significant lung disease. Some may be acute and related to congestive heart failure. BNP has been elevated. A mild subclinical exacerbation of his chronic obstructive pulmonary disease may be present as well. Bronchitis or pneumonia does not appear to be present. He likely will need oxygen on discharge. 3. Acute myocardial infarction: Per Cardiology. The patient is doing well from a hemodynamic stand point and has no ongoing chest pain. 4. Aortic stenosis. His valve still appears to be functioning acceptably. 5. Type 2 diabetes, on metformin on admission. Currently on insulin by sliding scale. Steroids may make his glucoses worse. 6. History of dementia. On Aricept. RECOMMENDATIONS: DuoNebs will be continued. Oxygen will be continued as needed. He can be titrated to 88% or greater. Home oxygen likely is going to be required. Spirometry will be obtained. Further plans and recommendations will be made based on his progress over the next 12 to 24 hours and on his spirometric results. /[id number]/MODL
[2019-02-04] MEDS: ENOXAPARIN 40 MG/0.4 ML SYR SC SCH (21:26)
[2019-02-05 04:28] LABS: PLATELET COUNT 361 10^3/uL (150-400)
[2019-02-05] MEDS: IPRATROPIUM/ALBUTEROL 3 ML DEYVIAL IH SCH ×2 (05:12→11:13)
[2019-02-05] MEDS: LEVOTHYROXINE 88 MCG TAB PO SCH (06:22)
[2019-02-05] MEDS: INSULIN LISPRO 100 UNIT/ML SC SCH ×2 (08:10→12:46)
[2019-02-05] MEDS: ATORVASTATIN CALCIUM 20 MG TAB PO SCH (08:11)
[2019-02-05] MEDS: CHOLECALCIFEROL VIT D3 1,000 UNITS TAB PO SCH (08:11)
[2019-02-05] MEDS: MULTIVITAMINS 1 EACH TAB PO SCH (08:11)
[2019-02-05] MEDS: ASPIRIN 81 MG CHEWABLE TAB PO SCH (08:11)
[2019-02-05] MEDS: OMEGA-3 FATTY ACIDS 1,000 MG CAP PO SCH (08:11)
[2019-02-05] MEDS: DONEPEZIL HCL 5 MG TAB PO SCH (08:14)
--- NOTE | 2019-02-05 10:17 | ASMTCMCOM ---
CM Note CM Note Notes: Brianda Loyddo spoke with PCP EVA Medina regarding follow up for patient. They will follow up on the patient and his . Patient likely dc to [facility] today. CM available should other needs arise. Plan: DC to SNF when medically cleared. Date Signed: 02/05/2019 10:16 AM Electronically Signed By:Ileana Haley RN
[2019-02-05] MEDS ORDERED: predniSONE 20 MG TAB PO SCH (12:45)
--- NOTE | 2019-02-05 12:49 | PDIAF ---
- Diagnosis Diagnosis: NSTEMI Code Status: Do Not Resuscitate - Medication Management Discharge Medications: electronically signed and located in the Home Medication List. - Orders Services needed: Registered Nurse, Certified Cost Accounting Analyst, Master Senior Program Manager , Physical Therapy, Occupational Therapy, Speech Language Pathologist Diet Recommendation: no restrictions on diet - Follow Up Care Current Providers and Referrals: Yarelis Armenta MD [Primary Care Provider] - As per Instructions
--- NOTE | 2019-02-05 13:08 | ASMTCMCOM ---
CM Note CM Note Notes: Patient plan of care reviewed in interdisciplinary rounds. Patient has been medically cleared for dc to [facility], final oders via [employer]. Rozina bryantifed. CM available should other needs arise. RN to call report. Plan: Dc to SNF via wheelchair van with oxygen. Date Signed: 02/05/2019 01:06 PM Electronically Signed By:Ileana Haley RN
--- NOTE | 2019-02-05 13:15 | GDS ---
[f rep st] DISCHARGE SUMMARY DISCHARGE DIAGNOSES: 1. Non ST-elevation myocardial infarction. 2. Chronic obstructive pulmonary disease. 3. Chronic hypoxemic respiratory failure. 4. Diabetes. 5. Dementia. 6. Toxic metabolic encephalopathy, now resolved. 7. Moderate aortic stenosis. Please see admission history and physical by Dr. Carolann Olivarez. The patient presented with fall sec ondary to loss of balance. Upon presentation he had an elevated troponin of 1.7. CTA at that time s howed no pulmonary embolism, but fairly significant emphysema, 85% on room air. His troponin peaked at 1.7. He received 48 hours of heparin. He declined invasive workup. Echocardiogram showed an api david hypokinesis which is old, moderate aortic stenosis with slightly increased gradient but still in the moderate range. There were no significant new findings on echocardiogram. His LVEF was 50-55 pe rcent. He declined stress test. He remained fairly significantly hypoxic and did not respond to diu resis. He did not have an infiltrate. CT, again, demonstrated fairly significant emphysema. He was seen by Pulmonary who gave him a dose of prednisone. Bedside PFT showed obstructive physiology. He is discharged on 5 days of prednisone total for a burst as this resulted in a slight improvement of his oxygen requirement. Notably, he was not wheezing. He is discharged to [facility] for some rehabilitation prior to returning home in [place]. The king ent is do not resuscitate. /[id number]/MODL
--- NOTE | 2019-02-05 13:46 | SOAPPROG ---
SOAP Progress Note Assessment/Plan: Assessment: Severe COPD/emphysema. This is associated with hypoxemia. He does have a component of reversible airways obstruction. Continuing duo nebs on discharge is recommended. Additional inhaled medications in the future may be of benefit. I will follow him back up in the office. Interstitial fibrosis. He does have peripheral fibrotic lung disease present, nonspecific. For outpatient follow-up along with his COPD/emphysema. Hypoxemia: Oxygen requirements have come down to 3 L. This may or may not be related to prednisone. To be discharged on 40 mg. He likely had oxygen requirements secondary to his lung disease prior to admission. Non ST myocardial infarction. Doing well clinically. On appropriate medications. Cardiology to follow as an outpatient. Aortic stenosis, moderate. Type 2 diabetes. Glucose is not significantly worse with steroids this point. History of dementia. Disposition. Patient is being discharged today to [facility]. He is DNR/DNI. Plan: Agree with plans on discharge today to SNF rehab. He will go home on four times daily duo nebs which should be of significant benefit for him. He will have prednisone for 5 days, then stop. Oxygen will be continued. I will plan on seeing him back in the office at some point after he has completed rehab and is living back again with his . Pulmonary function studies may be needed in the future. Discussed with the patient, hospitalist. Subjective: No complaints. Occasional cough. Denies significant shortness of breath. On oxygen Objective: Vital Signs Temp Pulse Resp BP Pulse Ox 36.9 C 58 L 20 107/45 L 93 02/05/19 11:08 02/05/19 11:15 02/05/19 11:15 02/05/19 11:08 02/05/19 11:15 Laboratory Results 02/05/19 03:16 02/05/19 03:16 02/04/19 02/05/19 02/06/19 05:59 05:59 05:59 Intake Total 950 800 Output Total 900 Balance 50 800 PT 13.6 SEC (12.0-15.0) 02/01/19 18:15 INR 1.08 (0.83-1.16) 02/01/19 18:15 Spirometry shows severe obstructive disease with improvement after bronchodilator. The forced vital capacity is 2.02 L, 62% of predicted at baseline with an FEV1 of 1.12 L, 51% of predicted. The ratio is 55%. Following bronchodilator there is significant improvement. The vital capacity improves by 9% to 2.21 L, 68% of predicted. The FEV1 improves by 13% to 1.27 L , 58% of predicted. Physical Exam - Physical Exam General Appearance: alert, no apparent distress EENT: PERRL/EOMI, other (Nasal cannula in place at 3 L: Sats 93%) Neck: normal inspection (No JVD) Respiratory: lungs clear, decreased breath sounds (Decreased breath sounds and excursions bilaterally), wheezing (Few end expiratory wheezes present with voluntary forced full exhalation.), prolonged expiration, No rhonchi (Mild central congestion present with coughing) Cardiac/Chest: bradycardia (Regular), systolic murmur, No gallop Abdomen: normal bowel sounds, non-tender, soft Skin: normal color, warm/dry Extremities: No pedal edema Neuro/Psych: no motor/sensory deficits, cognition abnormalities (Mild dementia) ICD10 Worksheet Patient Problems: Problems Problem Status Onset NSTEMI (non-ST elevated myocardial infarction) Acute
[2019-02-05 14:56] VITALS: BP 130/53
== END 2019-02-05 16:01 | DRG 281 ==
LOC: CED 11:21 → CEDHOLD 13:50 → F2W 16:05
PROVIDERS: ADMIT Internal Medicine; ATTEND Internal Medicine
DX: I21.4 Non-ST elevation (NSTEMI) myocardial infarction (principal); J96.11 Chronic respiratory failure with hypoxia; S22.050A Wedge compression fracture of T5-T6 vertebra, initial encounter for closed fracture; W18.39XA Other fall on same level, initial encounter; Y92.012 Bathroom of single-family (private) house as the place of occurrence of the external cause; Z66 Do not resuscitate; J44.9 Chronic obstructive pulmonary disease, unspecified; F03.90 Unspecified dementia, unspecified severity, without behavioral disturbance, psychotic disturbance, mood disturbance, and anxiety; I35.0 Nonrheumatic aortic (valve) stenosis; E78.5 Hyperlipidemia, unspecified; M40.294 Other kyphosis, thoracic region; E11.40 Type 2 diabetes mellitus with diabetic neuropathy, unspecified; E03.9 Hypothyroidism, unspecified; G89.29 Other chronic pain; Z79.84 Long term (current) use of oral hypoglycemic drugs; Z87.891 Personal history of nicotine dependence
CPT/HCPCS: 71046-PO; 71275-PO; 72128-PO; 80053-ER; 84484-ER; 85025-QW-ER; 85379-QW-ER; 85520-90; 96360-ER; 97116-GP; 97162-GP; 97165-GO; 97530-GP; 97535-GO; 99291-ER; J1644; J1650; J1815; J1940; J7512; Q9967